=== PATIENT | male | born 1945 | race Caucasian/White ===

== ENCOUNTER → 2018-08-18 10:53 | Outpatient (CLI) | payer MEDICARE, OTHER, SELFPAY ==
[2018-08-18 11:24] LABS: Blood Urea Nitrogen 30 mg/dL (9-20); Estimated Glomerular Filt Rate 45.7 mL/min (>60)
--- NOTE | 2018-08-18 11:42 | DI.CT.S_ITS ---
PROCEDURE: CT ABDOMEN PELVIS WO/W CON INDICATIONS: HISTORY OF HEMATURIA patient reports history of hematuria with tumor removal in 2003. TECHNIQUE: After the administration of oral contrast, 5 mm thick sections acquired from the diaphragms to the iliac crests. After the administration of intravenous contrast, 5 mm thick sections acquired from the diaphragms to the symphysis. 5 mm thick coronal and sagittal reformats were acquired. For radiation dose reduction, the following was used: automated exposure control, adjustment of mA and/or kV according to patient size. COMPARISON: None. FINDINGS: Image quality: Excellent. ABDOMEN: Lung bases: Lung bases are clear. Heart size is normal. Solid organs: Liver is normal in size and enhancement. Gallbladder appears normal. Biliary system is non-dilated. Pancreas enhances normally. Spleen is normal in size and enhancement. No right-sided adrenal nodules but there is a relatively prominent nodular mass involving the left adrenal gland which measures up to 3.1 cm AP, 2.8 cm transverse and 2.7 cm craniocaudad. The internal contents of this mass is homogeneous, and measures approximately 3.3 Hounsfield units (likelihood of adrenal adenoma is considered relatively high by this appearance. Both kidneys are normal in size. No hydronephrosis or nephrolithiasis. Bowel and peritoneum: Stomach, small and large bowel loops are normal in caliber and wall thickness. No free fluid or air. Nodes and vessels: No retroperitoneal or mesenteric adenopathy by size criteria. Aorta and inferior vena are normal in caliber. Miscellaneous: No ventral hernias. PELVIS: Genitourinary: Bladder wall thickness is normal. Miscellaneous: No inguinal hernias or adenopathy. Bones: No suspicious bony lesions. No vertebral body compression fractures. IMPRESSION: The patient reports a clinical history of prior bladder carcinoma with tumor resection in 2003. The bladder remains in place, and demonstrates no evidence of recurrent mass lesion or adjacent adenopathy. No renal cortical or urothelial mass lesion is found. There is an unexpected finding of a left adrenal mass, which has a low internal radiodensity and is most consistent with an adrenal adenoma. This measures up to 3.1 x 2.8 x 2.7 cm and has an internal radiodensity during this examination of 3.3 Hounsfield units. This structure could be further assessed to document absence of slubber frame changer time in 6 months at which time an adrenal mass protocol CT scan without and with contrast would be recommended to further characterize the presumed adrenal adenoma. Please note that CT scanning cannot differentiate between functioning and nonfunctioning adrenal adenomas. Dictated by: Lester Paul M.D. on 08/18/2018 at 15:41 Approved by: Lester Paul M.D. on 08/18/2018 at 15:46
== END ==
PROVIDERS: PCP Family Medicine; Visit Provider Urology
DX: Z85.51 Personal history of malignant neoplasm of bladder (principal); E27.9 Disorder of adrenal gland, unspecified; Z87.448 Personal history of other diseases of urinary system
CPT/HCPCS: 36415; 74178; 82565; 84520; Q9967

== ENCOUNTER 2018-10-31 03:38 | Emergency (ER) | payer MEDICARE, OTHER, SELFPAY ==
[2018-10-31 03:43] VITALS: BP 122/86; PULSE 78; RESP 16; TEMP 36.9; O2SAT 97; BMI 38.5
--- NOTE | 2018-10-31 03:46 | ED_ITS ---
HPI - Fall General Chief Complaint: Fall Stated Complaint: fall Time Seen by Provider: 10/31/18 03:43 Source: patient and EMS Mode of arrival: EMS Limitations: no limitations History of Present Illness HPI Narrative: 73-year-old male brought in by EMS after he sustained a fall at home. She was an unwitnessed fall. EMS was called by the patient's . Upon arrival patient's blood sugar was in the low 50s. He is a fow-cosfsic-wuntfeyoe diabetic. He did admit drinking alcohol this evening. EMS reports they state on scene for a while gave him oral glucose and juice which improved his blood sugar. He denied any other symptoms except just feeling ?off? no injuries reported from the fall. Related Data Previous Rx's Medication Instructions Recorded hydrocodone-acetaminophen [Trevor] 1 tab PO Q4-6H PRN #14 tab 10/31/18 Allergies Allergy/AdvReac Type Severity Reaction Status Date / Time No Known Allergies Allergy Uncoded 08/05/17 12:28 Review of Systems Constitutional Denies chills, Denies fever(s), Denies frequent falls, Denies headache(s), Denies lethargy and Denies weakness Comments: Just does not feel well Eyes Denies change in vision and Denies diplopia ENT Ears, Nose, Mouth, and Throat: Denies vertigo, Denies dizziness, Denies headache(s) and Denies disequilibrium Cardiovascular Denies chest pain, Denies palpitations and Denies dyspnea Respiratory Denies cough and Denies dyspnea Gastrointestinal Gastrointestinal: Denies abdominal pain, Denies change in stool character, Denies nausea and Denies vomiting Musculoskeletal Denies back pain, Denies myalgias, Denies arthralgias, Denies muscle cramps and Denies tingling Integumentary/Breasts Denies new lesions and Denies rash Neurologic Denies abnormal speech, Denies confusion, Denies vertigo, Denies dizziness, Denies frequent falls, Denies headache(s), Denies focal weakness, Reports memory loss (Does not remember the fall), Denies sensory deficit, Denies tingling, Denies disequilibrium and Denies weakness Psychiatric Denies confusion and Reports memory loss (Does not remember the fall) Endocrine Denies palpitations Hematologic/Lymphatic Denies easy bleeding and Denies easy bruising Allergic/Immunologic Denies urticaria Exam Initial Vital Signs Initial Vital Signs: Vital Signs Temperature 98.4 F 10/31/18 03:43 Pulse Rate 78 10/31/18 03:43 Respiratory Rate 16 10/31/18 03:43 Blood Pressure 122/86 10/31/18 03:43 Pulse Oximetry 97 10/31/18 03:43 Const General: cooperative, well developed, well groomed and No acute distress Orientation: alert, awake, oriented x3 and not confused HENME Head: normal to inspection and normocephalic Nose: external nose normal Face and sinus: normal facial exam Resp Effort & Inspection: normal respiratory effort Auscultation: clear to auscultation bilaterally Cardio Rate: regular rate Rhythm: regular rhythm Pulses: radial pulses present GI Inspection: non-distended Palpation: soft, No firm and No tender Back/Spine/Pelvis Cervical Spine: No collar present, No cervical spinal tenderness and No step off deformity Thoracic/Lumbar Spine: No thoracic spinal tenderness and No lumbar spinal tenderness Skin Lesions: no lesions Rashes: no rashes Neuro General: alert and awake Cognition: normal cognition Speech: speech normal Gait: normal gait Motor: muscle tone normal throughout Sensory Exam: no sensory deficits noted Extrem General: normal to inspection and capillary refill normal Psych Appearance: grossly normal and well kempt [facility] Medical History Diabetes (Acute) Seizures (Acute) Social History Smoking Status: Former smoker Social History Smoking Status: Former smoker Scores GCS Kasia coma scale eye opening: Spontaneous Kasia coma scale verbal response: Orientated [place] coma scale motor response: Obey commands Kasia coma scale total score: 15 Nexus Score for C-Spine Focal Neurologic deficit present: No Midline spinal tenderness present: No Altered level of conciousness present: No Intoxication present: No Distracting Injury Present: No Nexus Criteria for C-spine: 0 Course Orders Ordered: ED Orders 10/31/18 03:44 EKG-12 Lead Stat 10/31/18 04:03 Complete Blood Count AUTO DIFF Stat Comprehensive Metabolic Panel Stat Lipase Stat Prolactin Stat 10/31/18 04:16 CT abdomen pelvis w con Stat Discontinued Medications Sodium Chloride (Normal Saline 0.9%) 1,000 mls @ 1,000 mls/hr IV BOLUS ONE Stop: 10/31/18 05:14 Last Admin: 10/31/18 05:39 Dose: Not Given Morphine Sulfate (Morphine) 4 mg IV NOW ONE Stop: 10/31/18 04:16 Last Admin: 10/31/18 04:21 Dose: 4 mg Vital Signs - 8 hr 10/31/18 03:43 10/31/18 04:00 Temperature 98.4 F Pulse Rate 78 76 Respiratory Rate 16 23 Blood Pressure 122/86 Blood Pressure [Right Arm] 122/86 Pulse Oximetry 97 95 MDM - Fall Lab Data Attestation: I reviewed the patient's lab results. Result diagrams: 10/31/18 04:03 10/31/18 04:03 Lab Results 10/31/18 10/31/18 Range/Units 04:03 04:03 WBC 9.7 (4.5-11.0) X10^3/uL RBC 3.79 L (4.5-5.9) X10^6/uL Hgb 12.6 L (13.5-17.5) g/dL Hct 38.2 L (41-53) % MCV 100.6 H (80-100) fL MCH 33.2 (26-34) PG MCHC 33.0 (30-36) % RDW 14.4 (11.6-14.8) % Plt Count 163 (150-400) X10^3/uL Neut % (Auto) 79.7 H (50-75) % Lymph % (Auto) 13.1 L (25-40) % Gonzales % (Auto) 5.9 (3-14) % Eos % (Auto) 1.0 L (2-4) % Baso % (Auto) 0.3 (0-2) % Neut # (Auto) 7700 H (4265-8415) /uL Lymph # (Auto) 1300 (5284-5925) /uL Gonzales # (Auto) 600 (0-900) /uL Eos # (Auto) 100 (0-450) /uL Baso # (Auto) 0 (0-100) /uL Sodium 137 (137-145) mmol/L Potassium 4.2 (3.4-5.1) mmol/L Chloride 103 (98-107) mmol/L Carbon Dioxide 21 L (22-32) mmol/L BUN 26 H (9-20) mg/dL Creatinine 1.50 H (0.66-1.25) mg/dL Estimated GFR 45.6 L (>60) mL/min BUN/Creatinine Ratio 17.3 (6-22) Glucose 136 H (80-110) mg/dL Calcium 8.5 (8.4-10.2) mg/dL Total Bilirubin 0.4 (0.2-1.3) mg/dL AST 38 (17-59) IU/L ALT 44 (21-72) IU/L Alkaline Phosphatase 40 (38-126) U/L Total Protein 6.4 (6.3-8.2) g/dL Albumin 3.7 (3.5-5.0) g/dL Globulin 2.7 (1.7-4.1) g/dL Albumin/Globulin Ratio 1.4 (1.0-2.8) Lipase 470 H (23-300) U/L Prolactin 52.6 H (3.7-17.9) ng/mL Point of Care Testing Glucose POC [address] scan - abdomen: Radiologist's impression: Acute appearing nondisplaced right 9th and 10th rib fractures without evidence of pulmonary contusion or pneumothorax. Nodular scarring in the right lung base is unchanged. No intra-abdominal or intrapelvic trauma appreciated. Left adrenal lesion is unchanged. ECG Data Attestation: I personally reviewed and interpreted this ECG as follows: Prior ECG tracings: not available for review Interpretation: Sinus rhythm Ventricular rate is 77 Normal axis Normal QRS Normal QTC No ST T wave changes MDM Narrative Medical decision making narrative: Patient's blood sugar remained elevated here in the emergency department. His symptoms improved. He does have an elevated prolactin level however this is nonspecific for seizures. He could have potentially had a seizure as he has had 1 prior seizure but he is taking his seizure medications. He was somewhat confused after the event but this could also be because he was hypoglycemic at the time. CT scan does show right 9th and 10th rib fractures. Patient is not hypoxic or tachypneic. Will treat symptoms. Discussed the CT scan with the patient. We discussed return precautions. Informed him that he cannot drive until he is cleared by his neurologist. His is at bedside for this discussion. He his expressed understanding and agreement with plan. Discharge Plan Departure Patient Disposition: Home Clinical Impression: Hypoglycemia Multiple rib fractures Qualifiers: Encounter type: initial encounter Fracture type: closed Laterality: right Qualified Code(s): S22.41XA - Multiple fractures of ribs, right side, initial encounter for closed fracture Fall Qualifiers: Encounter type: initial encounter Qualified Code(s): W19.XXXA - Unspecified fall, initial encounter Instructions: DI for Rib Fracture, How to Prevent Falls Activity Restrictions/Additional Instructions: Your not to drive until your cleared by your primary doctor or your neurologist. Contact these individuals on Thursday for follow-up. Continue all of your medications. Return to the emergency department for any new or worsening symptoms Prescriptions: New hydrocodone-acetaminophen [Trevor] 5-325 mg tablet 1 tab PO Q4-6H PRN (Reason: pain) Qty: 14 RF: 0 Referrals: Rj Flanagan MD [Primary Care Provider] -
[2018-10-31 04:00] VITALS: BP 122/86; PULSE 76; RESP 23; O2SAT 95
[2018-10-31 04:12] LABS: Add Manual Diff / Slide Review NO; Basophils Absolute Auto 0 /uL (0-100); Basophils Percent Auto 0.3 % (0-2); Eosinophils Absolute Auto 100 /uL (0-450); Hematocrit 38.2 % (41-53); Hemoglobin 12.6 g/dL (13.5-17.5); Lymphocytes Absolute Auto 1300 /uL (1100-4500); Lymphocytes Percent Auto 13.1 % (25-40); Mean Corpuscular Hemoglobin 33.2 PG (26-34); Mean Corpuscular Volume 100.6 fL (80-100); Monocytes Absolute Auto 600 /uL (0-900); Monocytes Percent Auto 5.9 % (3-14); Neutrophils Absolute Auto 7700 /uL (1500-7000); Neutrophils Percent Auto 79.7 % (50-75); Platelet Count 163 X10^3/uL (150-400); Red Blood Cell Count 3.79 X10^6/uL (4.5-5.9); Red Cell Distribution Width 14.4 % (11.6-14.8); White Blood Cell Count 9.7 X10^3/uL (4.5-11.0)
--- NOTE | 2018-10-31 04:16 | DI.CT.S_ITS ---
PROCEDURE: CT ABDOMEN PELVIS W CON INDICATIONS: Right-sided abdominal pain after fall TECHNIQUE: After the administration of oral and intravenous contrast, 5 mm thick sections acquired from the diaphragms to the symphysis. 5 mm thick coronal and sagittal reformats were performed. For radiation dose reduction, the following was used: automated exposure control, adjustment of mA and/or kV according to patient size. COMPARISON: [facility], CT, CT ABDOMEN PELVIS WO/W CON, 08/18/2018, 11:32. FINDINGS: Image quality: Diagnostic. ABDOMEN: Lung bases: Mild scarring versus atelectasis is identified within the bilateral lung bases, which is similar to the previous exam. Heart size is normal. Solid organs: Liver is normal in size and is noted to be in hypodense when compared to the spleen. Gallbladder is not enlarged. Biliary system is non-dilated. Pancreas enhances normally. Spleen is normal in size and enhancement. A left adrenal adenoma is unchanged in size and measures up to approximately 3.1 cm in diameter. Kidneys are normal in size and enhancement, without hydronephrosis. No perinephric edema is probably senescent. Peritoneum and bowel: Stomach, duodenum and remainder of the small bowel loops are unremarkable. No small bowel dilatation is evident. The colon is essentially unremarkable with the exception of colonic diverticulosis. No diverticulitis is appreciated. No free fluid, loculated fluid collection or free air is evident. Nodes and vessels: No retroperitoneal or mesenteric adenopathy. Aorta and inferior vena cava are normal in caliber. There is aortic atherosclerosis. Bones: No acute fracture or suspicious osseous lesion is evident. Mild to moderate degenerative changes of the imaged spine are present. Incidental note is made of possible subtle fractures, which have a subacute appearance involving the anterolateral origins of the 10th and ninth ribs. This was not appreciated on the previous CT. PELVIS: Genitourinary: Bladder wall thickness is normal. The prostate is heterogeneous and mildly enlarged, measuring approximately 4.3 x 5.7 cm. Miscellaneous: No inguinal hernias or adenopathy. No free fluid or loculated fluid collection is appreciated. Bones: No suspicious bony lesions. No acute pelvic fractures are evident. There are mild degenerative changes of the bilateral hips. IMPRESSION: 1. Nondisplaced anterior right ninth and 10th rib fractures. 2. Mild atelectasis versus scarring at the right lung base is similar to the prior study. Please consider followup CT of the chest in 6 months to exclude other etiologies. 3. No evidence of solid organ laceration or contusion. 4. Hepatic steatosis. 5. Colonic diverticulosis without diverticulitis. 6. Mild enlarged prostate. Dictated by: Al Golden M.D. on 10/31/2018 at 8:20 Approved by: lA Golden M.D. on 10/31/2018 at 8:27
[2018-10-31 04:18] LABS: Alanine Aminotransferase 44 IU/L (21-72); Albumin 3.7 g/dL (3.5-5.0); Albumin Globulin Ratio 1.4 (1.0-2.8); Alkaline Phosphatase 40 U/L (38-126); Aspartate Aminotransferase 38 IU/L (17-59); BUN Creatinine Ratio 17.3 (6-22); Bilirubin Total 0.4 mg/dL (0.2-1.3); Blood Urea Nitrogen 26 mg/dL (9-20); Calcium 8.5 mg/dL (8.4-10.2); Carbon Dioxide 21 mmol/L (22-32); Chloride 103 mmol/L (98-107); Estimated Glomerular Filt Rate 45.6 mL/min (>60); Globulin 2.7 g/dL (1.7-4.1); Glucose 136 mg/dL (80-110); HEMOLYSIS < 15 (0-50); Lipase 470 U/L (23-300); Potassium 4.2 mmol/L (3.4-5.1); Sodium 137 mmol/L (137-145); Total Protein 6.4 g/dL (6.3-8.2)
[2018-10-31] MEDS: MORPHINE 4 MG/ML INJ IV (04:21)
[2018-10-31 04:35] LABS: Prolactin 52.6 ng/mL (3.7-17.9)
[2018-10-31 06:34] VITALS: BP 120/55; PULSE 71; RESP 20; O2SAT 96
== END 2018-10-31 06:40 | disposition home or self-care (01) ==
PROVIDERS: Emergency Provider Emergency Medicine; PCP Family Medicine
DX: E16.2 Hypoglycemia, unspecified (principal); S22.41XA Multiple fractures of ribs, right side, initial encounter for closed fracture; R41.3 Other amnesia; W19.XXXA Unspecified fall, initial encounter
CPT/HCPCS: 36415; 74177; 80053; 82962; 83690; 84146; 85025; 93005; 96374; 99282; 99285; J2270; Q9967

== ENCOUNTER → 2018-11-22 09:11 | Outpatient (CLI) | payer MEDICARE, OTHER, SELFPAY ==
--- NOTE | 2018-11-22 | DI.ECHO.S_ITS ---
[place] +---------+ [facility] +---------+ : : [address] : : : : [id number] : : : : Phone: [phone]+ Echocardiogram Report + + :Name: DEANDRE MERCADO Study Date: 11/22/2018 Height: 74 in : :[facility] Weight: 305 lb : : Gender: Male BSA: 2.6 m2 : :: 1945 Age: 73 yrs BP: 110/54 mmHg: :Reason For Study: Syncope : : Performed By: Katerin Moreno : :Referring: VERITO JAIMES : + + Interpretation Summary Grossly normal left ventricle size with ejection fraction 60-65%. Grossly normal right ventricle and both atria. Mild aortic valve sclerosis. No valvular regurgitation. The aortic arch is at the upper limits of normal in size. Procedure: A two-dimensional transthoracic echocardiogram with color flow and Doppler was performed. The study quality was technically adequate. There is no prior echocardiogram noted for this patient. The patient was in normal sinus rhythm during the exam. Left Ventricle: The left ventricle is grossly normal size. The ejection fraction is estimated to be 60-65%. There are no focal wall motion abnormalities. Diastolic function could not be accurately assessed due to unobtainable data. Right Ventricle: The right ventricle grossly appears normal in size with probable normal systolic function. Atria: The left atrial size is normal. Right atrial size is normal. Mitral Valve: The mitral valve is normal in structure and function. There is no mitral regurgitation noted. Aortic Valve: The aortic valve opens well. There is mild aortic valve sclerosis. No aortic regurgitation is present. Tricuspid Valve: The tricuspid valve is normal in structure and function. No tricuspid regurgitation. Pulmonic Valve: The pulmonic valve is not well visualized. There is no pulmonic valvular regurgitation. Great Vessels: The aortic root is normal size. The ascending aorta could not be visualized. The aortic arch is at the upper limits of normal in size. The IVC is of normal diameter and collapses greater than 50% with a sniff. This suggests a low right atrial pressure of 3 mm Hg. Pericardium/ Pleura There is no pericardial effusion. There is no pleural effusion. MMode/2D Measurements & Calculations LVIDd: 4.7 cm Ao root diam: 3.5 cm LVIDs: 3.3 cm Aortic Jxn: 2.6 cm FS: 30.2 % Ao Arch Diam (Prox Trans): 3.1 cm IVSd: 0.99 cm LVPWd: 0.73 cm LV joyce. diameter/BSA (cm/m^2): 1.8 LV sys. diameter/BSA (cm/m^2): 1.3 LA dimension: 3.9 cm RA long axis: 4.6 cm LA A2 area: 22.8 cm2 RA area: 15.3 cm2 LA A4 area: 16.3 cm2 RA vol: 42.9 ml LA length (vol): 4.7 cm RA : 16.5 ml/m2 LA vol: 67.7 ml IVC diam: 1.6 cm LA vol index: 26.0 ml/m2 RVDd major: 5.5 cm RVD1 (basal): 3.6 cm RVD2 (mid): 2.6 cm Doppler Measurements & Calculations Ao V2 max: 152.1 cm/sec MV E max jason: 108.3 cm/sec Ao V2 mean: 104.7 cm/sec MV A max jason: 72.8 cm/sec Ao max P.3 mmHg MV E/A: 1.5 Ao mean P.1 mmHg Med Peak E' Jason: 5.3 cm/sec Ao V2 VTI: 33.7 cm E/E' med: 20.6 Lat Peak E' Jason: 9.3 cm/sec E/E' lat: 11.7 E/e' average: 16.1 MV dec time: 0.28 sec MV P1/2t: 80.8 msec PA V2 max: 102.4 cm/sec MV P1/2t max jason: 108.5 cm/sec PA V2 mean: 67.2 cm/sec MVA(P1/2t): 2.7 cm2 PA mean P.1 mmHg PA Accel Time: 0.13 sec Electronically signed by: Paula Salguero on Reading Physician:11/22/2018 02:06 PM
== END ==
PROVIDERS: PCP Student in an Organized Health Care Education/Training Program; Visit Provider Student in an Organized Health Care Education/Training Program
DX: I35.8 Other nonrheumatic aortic valve disorders (principal); R55 Syncope and collapse; I10 Essential (primary) hypertension; E11.9 Type 2 diabetes mellitus without complications
CPT/HCPCS: 93306

== ENCOUNTER → 2018-12-06 09:45 | Outpatient (CLI) | payer MEDICARE, OTHER, SELFPAY ==
--- NOTE | 2018-12-06 11:01 | PM.TREADMILL ---
Cardiac Stress Test Report Referral & Results Date Patient Seen: 12/06/18 Requesting provider: Sulma Silva Indication: Syncope Rest ECG: Unremarkable Procedure Note: This test was performed as a walking Lexiscan. Patient was able to walk any distance at any rate and it was determined that he would be unlikely to generate anything close to his target heart rate After both written and verbal informed consent the patient had an IV started by the diagnostic imaging RN and then was hooked up to the treadmill monitoring system. The patient was placed on the treadmill at 1 mile an hour with no elevation and was then injected with the Kerri scan material. The Cardiolite was then immediately administered. The patient spent an additional 2-3 minutes on the treadmill before being returned to the [facility] in the supine position. The patient had a normal response to all infused materials. Impression: Normal response to infuse materials Please see perfusion image report for details regarding possible ischemia Please note: Actual ECG tracings can be found in the PACS system.
--- NOTE | 2018-12-07 15:57 | DI.NM.S_ITS ---
DATE OF SERVICE: 12/06/2018 PROCEDURE: Pharmacological perfusion study. INDICATIONS: Syncope with underlying diabetes mellitus, hypertension, hyperlipidemia. RADIOPHARMACEUTICAL: 23.8 mCi technetium-99m Myoview IV was injected at stress and 24.5 mCi technetium-99m Myoview IV was injected at rest. CARDIAC STRESS: Patient underwent IV Lexiscan perfusion study under the supervision of an attending staff. Patient remained hemodynamically stable. He received IV Lexiscan as per protocol. Baseline rhythm was sinus with low- voltage complexes in chest leads. Stress EKG did not reveal any convincing ischemic changes. There were no significant arrhythmias. RAW DATA: There is increased subdiaphragmatic activity. Patient's weight is 305 pounds. GATED STUDY: Resting stress LV ejection fraction 71% without any obvious wall motion abnormalities. TID ratio is 1.00, which is within normal limits. Resting LV end-diastolic volume is 97 mL. Lung/heart ratio is 0.36, which is within normal limits. MYOCARDIAL PERFUSION SCAN: Please note, this patient doesn't have any prone images. Stress supine and resting images were compared to each other. It appears to be that patient has predominantly fixed, large-sized severe perfusion defect involving the inferior wall, inferoapex, as well as inferoseptum without any reversible ischemia. CONCLUSION: Patient has fixed large-size severe inferior wall, inferoapical, and inferoseptal defect. In absence of prone images, difficult to distinguish whether it is an old myocardial infarction in the right coronary artery territory or tissue attenuation artifact as patient has 305 pounds weight. There are no significant wall motion abnormalities in gated study and there are no obvious Q waves in inferior leads on EKG. There is a possibility that we are dealing with tissue attenuation artifact. However, one cannot rule out occlusive coronary artery disease and previous right coronary artery territory infarction. Correlate clinically. Ryan Ling - MAX/hilda/ doc#: [id number]/job#: [id number] dd: 12/07/2018 12:48:00 dt: 12/07/2018 15:25:00 DICTATING MD/COPIES TO: Milo Thomas MD COPIES MNE: REBECCA
== END ==
PROVIDERS: PCP Student in an Organized Health Care Education/Training Program; Visit Provider Student in an Organized Health Care Education/Training Program
DX: E11.9 Type 2 diabetes mellitus without complications (principal); E78.5 Hyperlipidemia, unspecified; Q21.9 Congenital malformation of cardiac septum, unspecified; I25.2 Old myocardial infarction; I10 Essential (primary) hypertension; R55 Syncope and collapse
CPT/HCPCS: 78452; 93016; 93017; 93018; A9502; J2785

== ENCOUNTER → 2019-02-01 07:50 | Outpatient (CLI) | payer MEDICARE, OTHER, SELFPAY ==
[2019-02-01 09:20] LABS: BUN Creatinine Ratio 17.5 (6-22); Blood Urea Nitrogen 21 mg/dL (9-20); Calcium 9.1 mg/dL (8.4-10.2); Carbon Dioxide 28 mmol/L (22-32); Chloride 103 mmol/L (98-107); Glucose 145 mg/dL (80-110); HEMOLYSIS < 15 (0-50); Potassium 4.4 mmol/L (3.4-5.1); Sodium 141 mmol/L (137-145)
[2019-02-01 09:49] LABS: Cortisol AM (Before 10AM) 14.5 ug/dL (4.46-22.7)
[2019-02-01 09:55] LABS: Collection Time Urine 24 Hours; Creatinine 24 Hour Urine 1493 mg/day (1000-2000); Creatinine Urine Random 135.7 mg/dL; Total Volume Urine 1100 mL
[2019-02-03 15:52] LABS: Adrenocorticotropic Hormone 8 pg/mL (6-50)
[2019-02-04 15:25] LABS: Cortisol, Free, Urine 9.8 mcg/24 h (4.0-50.0); Total Volume 1100 mL
[2019-02-05 11:56] LABS: Dehydroepiandrosterone Sulfate 22 mcg/dL (5-253)
[2019-02-05 18:19] LABS: Total Volume 1100 mL; Urine, Metanephrine 80 mcg/24 h (90-315); Urine, Normetanephrine 667 mcg/24 h (122-676)
[2019-02-09 17:56] LABS: Creatinine, 24 Urine 1.71 g/24 h (0.50-2.15); Total Catecholamines 45 mcg/24 h (26-121); Total Volume: 1100 mL
== END ==
PROVIDERS: PCP Student in an Organized Health Care Education/Training Program; Visit Provider Internal Medicine Endocrinology, Diabetes & Metabolism
DX: E27.8 Other specified disorders of adrenal gland (principal); I10 Essential (primary) hypertension
CPT/HCPCS: 36415; 80048; 82024; 82384; 82530; 82533; 82570; 82627; 83835

== ENCOUNTER → 2019-02-23 08:00 | Outpatient (CLI) | payer MEDICARE, OTHER, SELFPAY ==
[2019-02-25 15:45] LABS: Adrenocorticotropic Hormone < 5 pg/mL (6-50)
== END ==
PROVIDERS: PCP Student in an Organized Health Care Education/Training Program; Visit Provider Internal Medicine Endocrinology, Diabetes & Metabolism
DX: E27.8 Other specified disorders of adrenal gland (principal)
CPT/HCPCS: 36415; 82024; 82533; 82627

== ENCOUNTER → 2019-02-24 12:55 | Outpatient (CLI) | payer MEDICARE, OTHER, SELFPAY ==
--- NOTE | 2019-02-24 | DI.CT.S_ITS ---
PROCEDURE: CT ABDOMEN WO/W CON INDICATIONS: Adrenal mass TECHNIQUE: Noncontrast 3 mm thick sections acquired from the diaphragms to the iliac crests. After the administration of intravenous contrast, 3 mm thick venous-phase and 15-minute delayed images acquired from the diaphragms to the iliac crests. For radiation dose reduction, the following was used: automated exposure control, adjustment of mA and/or kV according to patient size. COMPARISON: [facility], CT, CT ABDOMEN PELVIS W CON, 10/31/2018, 4:54. [facility], CT, CT ABDOMEN PELVIS WO/W CON, 08/18/2018, 11:32. FINDINGS: Image quality: Excellent. Lung bases: There is right basilar atelectasis. Heart size is normal. Adrenal glands: There is a 2.7 x 3.1 cm left adrenal nodule demonstrating CT density -3.9 HU, compatible with a adrenal adenoma. The absolute washout is 39.5% and relative washout is 52.4%. It appears unchanged in size compared to 08/18/2018. The right atrium is normal. Solid organs: Liver is normal in size and enhancement. Gallbladder is normal. Biliary system is non dilated. Pancreas enhances normally. Spleen is normal in size and enhancement. Kidneys are normal in size and enhancement. No hydronephrosis or nephrolithiasis. Peritoneum and bowel: Unenhanced bowel loops are normal in caliber and wall thickness. There is scattered colonic diverticula. No free fluid or air. Nodes and vessels: No retroperitoneal or mesenteric adenopathy by size criteria. Aorta and inferior vena cava are normal in size. Moderate to severe atherosclerotic ossifications of the aorta and iliac arteries. Miscellaneous: No ventral hernias. Bones: No suspicious bony lesions. No vertebral body compression fractures. IMPRESSION: 1. The 2.7 x 3.1 cm left adrenal mass demonstrates CT density -3.[address] density of an adrenal mass less than 10 HU is highly specific for a benign adrenal adenoma. No further imaging followup is needed. 2. Diverticulosis. Dictated by: Cirilo Mckeon M.D. on 02/24/2019 at 15:37 Approved by: Cirilo Mckeon M.D. on 02/24/2019 at 16:00
[2019-02-24 13:51] LABS: BUN Creatinine Ratio 18.3 (6-22); Blood Urea Nitrogen 22 mg/dL (9-20); Calcium 8.7 mg/dL (8.4-10.2); Carbon Dioxide 29 mmol/L (22-32); Chloride 102 mmol/L (98-107); Glucose 243 mg/dL (80-110); HEMOLYSIS < 15 (0-50); Potassium 3.9 mmol/L (3.4-5.1); Sodium 140 mmol/L (137-145)
== END ==
PROVIDERS: PCP Student in an Organized Health Care Education/Training Program; Visit Provider Internal Medicine Endocrinology, Diabetes & Metabolism
DX: E27.8 Other specified disorders of adrenal gland (principal); I10 Essential (primary) hypertension; K57.90 Diverticulosis of intestine, part unspecified, without perforation or abscess without bleeding
CPT/HCPCS: 36415; 74170; 80048; Q9967

== ENCOUNTER → 2019-08-29 16:05 | Outpatient (CLI) | payer MEDICARE, OTHER, SELFPAY ==
[2019-08-29 17:06] LABS: BUN Creatinine Ratio 18.4 (6-22); Blood Urea Nitrogen 25 mg/dL (9-20); Calcium 9.8 mg/dL (8.4-10.2); Carbon Dioxide 33 mmol/L (22-32); Chloride 98 mmol/L (98-107); Estimated Glomerular Filt Rate 51.1 mL/min (>60); Glucose 176 mg/dL (80-110); HEMOLYSIS < 15 (0-50); Potassium 4.4 mmol/L (3.4-5.1); Sodium 137 mmol/L (137-145)
== END ==
PROVIDERS: PCP Student in an Organized Health Care Education/Training Program; Referring Provider Student in an Organized Health Care Education/Training Program; Visit Provider Student in an Organized Health Care Education/Training Program
DX: R60.9 Edema, unspecified (principal); I48.91 Unspecified atrial fibrillation
CPT/HCPCS: 36415; 80048